=== PATIENT | male | born 1950 | race Caucasian/White ===

== ENCOUNTER 2017-01-17 09:14 | Day surgery (SDC) | payer BC, MEDICARE ==
[~2017-01-17 09:14] MED LIST: Lactated Ringers 1,000 ML IV SCH; Sodium Chloride 0.9% 10 ML Syringe FLUSH PRN
[2017-01-17] MEDS ORDERED: Citric Acid/Sodium Citrate Solution 30 ML Cup PO ONE ×2 (09:41→10:26)
[2017-01-17] MEDS ORDERED: Propofol 200 MG/20 ML SDV ONE ×2 (10:30→12:22)
[2017-01-17] MEDS ORDERED: fentaNYL 100 MCG/2 ML SDV ONE (10:30)
[2017-01-17 12:59] VITALS: BP 183/94
--- NOTE | 2017-01-17 21:55 | OR ---
PREOPERATIVE DIAGNOSES: Screening colonoscopy and history of colon polyps. POSTOPERATIVE DIAGNOSES: Screening colonoscopy and history of colon polyps. PROCEDURE PERFORMED: Colonoscopy. INDICATION: The patient is a 66-year-old male with history of colon polyps and a family history of colon cancer, presents for repeat colonoscopy at this time. PROCEDURE IN DETAIL: The patient was brought to the endoscopy suite. Sedation was given per Anesthesia. He was placed in left lateral position. First, the rectal exam was done, was normal. Scope was introduced into the rectum, slowly advanced through the rectum, sigmoid, descending, transverse, and ascending colon until the cecum was reached. Upon reaching the cecum, scope was slowly withdrawn looking all mucosal surfaces on the way out. No mucosal abnormalities lesions or polyps were noted. He did have moderate sigmoid diverticulosis. FINAL DIAGNOSIS: Sigmoid diverticulosis, otherwise normal colonoscopy. BKD: 01/17/2017 12:38:28 MODL: 01/17/2017 21:49:26 /[id number]
== END 2017-01-17 13:30 | disposition home or self-care (01) ==
LOC: VM.SDS 09:14
PROVIDERS: ATTEND Surgery
DX: Z12.11 Encounter for screening for malignant neoplasm of colon (principal); K57.30 Diverticulosis of large intestine without perforation or abscess without bleeding; Z98.890 Other specified postprocedural states; Z79.899 Other long term (current) drug therapy; I10 Essential (primary) hypertension; E78.5 Hyperlipidemia, unspecified; Z98.52 Vasectomy status
CPT/HCPCS: 00810; A9270; G0105; J2704; J3010; J7120

== ENCOUNTER 2024-07-06 06:42 | Day surgery (SDC) | payer BC, MEDICARE ==
[2024-07-06] MEDS: Lactated Ringers 1,000 ML IV SCH (06:58)
[2024-07-06] MEDS ORDERED: Propofol 200 MG/20 ML SDV ONE ×2 (07:45→08:04)
[2024-07-06] MEDS ORDERED: fentaNYL 100 MCG/2 ML SDV ONE (07:45)
[2024-07-06 08:53] VITALS: BP 155/78; PULSE 53
== END 2024-07-06 09:34 | disposition home or self-care (01) ==
LOC: VM.SDS 06:42
PROVIDERS: ATTEND Student in an Organized Health Care Education/Training Program
DX: Z12.11 Encounter for screening for malignant neoplasm of colon (principal); D12.2 Benign neoplasm of ascending colon; Z86.0100 Personal history of colon polyps, unspecified; I10 Essential (primary) hypertension; E78.5 Hyperlipidemia, unspecified; Z80.0 Family history of malignant neoplasm of digestive organs
CPT/HCPCS: 00811; 88305; 99100; J2704; J3010; J7120